=== PATIENT | female | born 1940 | race Caucasian/White ===

== ENCOUNTER → 2016-11-09 | Outpatient (CLI) | payer MEDICARE, OTHER ==
[~2016-11-09] MED LIST: RT-ALBUTEROL SULF 2.5 MG/3 ML PRE-MIX VIAL IH ONE; RT-ALBUTEROL SULF 2.5 MG/3 ML PRE-MIX VIAL ONE
== END ==
LOC: RT 14:15
PROVIDERS: ATTEND Nurse Practitioner Family
DX: J45.909 Unspecified asthma, uncomplicated (principal); J42 Unspecified chronic bronchitis; R06.00 Dyspnea, unspecified
CPT/HCPCS: 94060; 94640; 94726; 94729

== ENCOUNTER 2017-12-06 05:42 | Outpatient (CLI) | payer MEDICARE, OTHER ==
[~2017-12-06] VITALS: Ht 165.1 cm; Wt 84.4 kg
[2017-12-06] MEDS ORDERED: OMEG-141 PO (15:35)
[2017-12-06] MEDS ORDERED: FENO160T12 PO (15:35)
[2017-12-06] MEDS ORDERED: CARV12.53 PO (15:35)
[2017-12-06] MEDS ORDERED: MONT10TA24 PO (15:35)
[2017-12-06] MEDS ORDERED: METF-399 PO (15:35)
[2017-12-06] MEDS ORDERED: ASPI-586 PO (15:35)
[2017-12-06] MEDS ORDERED: LACT1CAP62 PO (15:35)
[2017-12-06] MEDS ORDERED: ASCO-262 PO (15:35)
[2017-12-06] MEDS ORDERED: ALPR0.254 PO (15:35)
[2017-12-06] MEDS ORDERED: ZOLP5TAB7 PO (15:35)
[2017-12-06] MEDS ORDERED: SPIR25TA5 PO (15:35)
[2017-12-06] MEDS ORDERED: MAGN250T13 PO (15:35)
[2017-12-06] MEDS ORDERED: CETI10TA20 PO (15:35)
[2017-12-06] MEDS ORDERED: DOXA2TAB2 PO (15:35)
[2017-12-06] MEDS ORDERED: CALC600T12 PO (15:35)
[2017-12-06] MEDS ORDERED: LEVO50TA6 PO (15:35)
[2017-12-06] MEDS ORDERED: BUDE0.5A IH (15:35)
[2017-12-06] MEDS ORDERED: TRAM50TA2 PO (15:35)
[2017-12-06] MEDS ORDERED: PANT40TA3 PO (15:35)
[2017-12-06] MEDS ORDERED: CYAN50008 PO (15:35)
[2017-12-06] MEDS ORDERED: CHOL200025 PO (15:35)
== END 2017-12-06 15:36 | disposition home or self-care (01) ==
LOC: PREOP 05:42
PROVIDERS: ATTEND Surgery
DX: Z01.818 Encounter for other preprocedural examination (principal)

== ENCOUNTER 2017-12-13 08:32 | Day surgery (SDC) | payer MEDICARE, OTHER ==
[~2017-12-13] VITALS: Ht 165.1 cm; Wt 84.4 kg
[~2017-12-13 08:32] MED LIST changes: +ALPR0.254 PO; +ASCO-262 PO; +ASPI-586 PO; +BUDE0.5A IH; +CALC600T12 PO; +CARV12.53 PO; +CETI10TA20 PO; +CHOL200025 PO; +CYAN50008 PO; +DOXA2TAB2 PO; +FENO160T12 PO; +LACT1CAP62 PO; +LEVO50TA6 PO; +MAGN250T13 PO; +METF-399 PO; +MONT10TA24 PO; +OMEG-141 PO; +PANT40TA3 PO; -RT-ALBUTEROL SULF 2.5 MG/3 ML PRE-MIX VIAL IH ONE; -RT-ALBUTEROL SULF 2.5 MG/3 ML PRE-MIX VIAL ONE; +SPIR25TA5 PO; +TRAM50TA2 PO; +ZOLP5TAB7 PO
[2017-12-13] MEDS ORDERED: NS IV 500 ML 500 ML ONE (08:48)
[2017-12-13] MEDS ORDERED: NS IV 500 ML 500 ML IV PRN (08:48)
[2017-12-13] MEDS ORDERED: fentaNYL INJECTION 100 MCG/2 ML AMP IVP ONE (09:00)
[2017-12-13] MEDS ORDERED: HURRICAINE EXT TUBE (BENZOCAINE) XX PRN (09:00)
[2017-12-13] MEDS ORDERED: MIDAZOLAM 2 MG/2 ML (VERSED) VIAL IVP ONE (09:00)
[2017-12-13 09:08] VITALS: BP 146/69
[2017-12-13] MEDS ORDERED: fentaNYL INJECTION 100 MCG/2 ML AMP ONE ×2 (10:10→10:11)
[2017-12-13] MEDS ORDERED: MIDAZOLAM 2 MG/2 ML (VERSED) VIAL ONE ×5 (10:11)
[2017-12-13] MEDS ORDERED: HURRICAINE EXT TUBE (BENZOCAINE) ONE (10:11)
--- NOTE | 2017-12-13 11:26 | Endo Procedure Record ---
Endo Procedure Report Date of Procedure Last Colonoscopy: Yes Dec 13, 2017 Surgeon (s) MARU SRIVASTAVA MD Post Procedure/Op Diagnosis EGD: Uncomplicated hiatal hernia. Small polyps along the proximal stomach. 1 mm distal gastric erosion Colonoscopy: Sigmoid diverticulosis. Poor bowel prep Procedure Performed EGD with antral biopsy for H. pylori. Gastric polypectomy using hot biopsy forceps Colonoscopy to cecum Description of Procedure Anesthesia Type: Conscious Sedation Specimen(s) collected/removed antral mucosa for H. pylori. Gastric polyp Description of the Procedure Indication for the procedures: This lady came in for an upper endoscopy to evaluate epigastric pain and symptoms of reflux disease, along with screening colonoscopy. Informed consent was obtained after reviewing the procedures in detail. Description of procedures: EGD/antral biopsy/gastric polypectomy: She was placed in left lateral decubitus position and her vital signs were monitored. Conscious sedation was achieved using Versed and fentanyl. The flexible gastroscope was then introduced down the esophagus, past the stomach, into the proximal duodenum. Findings: Esophagus: An uncomplicated hiatal hernia. There was no esophagitis. Stomach: 1. 1 mm erosion in the antrum. Biopsy for H. pylori was obtained. 2. A few, 1 mm polyps along the proximal body of the stomach. One of these was excised using hot biopsy forceps Duodenum: Normal. She tolerated the procedure well and was turned around in preparation for colonoscopy. Impression: Epigastric pain and symptoms of reflux disease. No esophagitis. Incidental gastric erosion. H. pylori status pending. Colonoscopy: Examination of the perianal area revealed external skin tags and a small component of external hemorrhoids. Digital examination was otherwise unremarkable. The colonoscope was then introduced into the rectum and advanced all the way to the cecum. The quality of bowel preparation was rather suboptimal. The scope was then withdrawn slowly and the mucosa examined in a systematic fashion. Finding: Sigmoid diverticulosis. She tolerated the procedures well and was taken back to the nursing area in a stable condition. Impression: Screening colonoscopy. No polyps. Recommend repeating in 5 years in view of family history of polyps Copy Copies To 1: GUI JOE XAVIER M MD Dec 13, 2017 11:25
--- NOTE | 2017-12-13 11:27 | Discharge Inst-Simple/Standard ---
Discharge Inst-Standard Discharge Medications New, Converted or Re-Newed RX: Other Patient Instructions/Follow Up Plan of Care/Instructions/FU: please schedule a CT of abdomen and pelvis with oral contrast regarding a ventral hernia. Follow-up with me in a week after the CT scan is completed. Activity as Tolerated: Yes Discharge Diet: No Restrictions MARU SRIVASTAVA MD Dec 13, 2017 11:27
--- NOTE | 2017-12-13 11:29 | History & Physicial ---
History of Present Illness History of Present Illness Reason for visit/HPI to undergo an upper endoscopy regarding symptoms of GERD and epigastric pain, along with screening colonoscopy. Reports a family history of polyps in one of her siblings. Date of Admission 12/13/17 Date Seen by a Provider: Dec 13, 2017 Time Seen by a Provider: 09:55 I consulted on this patient on 12/13/17 11:27 Attending Physician Maru Srivastava MD Admitting Physician Narayan Murillo MD Consult Allergies and Home Medications Allergies Coded Allergies: TREASURE Inhibitors (Unverified Allergy, Severe, cough, 11/09/16) Penicillins (Unverified Allergy, Intermediate, RASH, 11/09/16) morphine (Unverified Allergy, Intermediate, HIVES, 11/09/16) hydrochlorothiazide (Verified Allergy, Unknown, 12/06/17) losartan (Verified Allergy, Unknown, 12/06/17) promethazine (Unverified Adverse Reaction, Severe, hallucinate, disoriented, 11/09/16) amoxicillin (Unverified Adverse Reaction, Unknown, stomach ache, 11/09/16) clavulanic acid (Unverified Adverse Reaction, Unknown, stomach ache, ) Home Medications Alprazolam 0.25 Mg Tablet, 0.25 MG PO TID PRN for ANXIETY, (Reported) Ascorbate Calcium 500 Mg Tablet, 500 MG PO HS, (Reported) Aspirin 81 Mg Tablet.dr, 81 MG PO HS, (Reported) Budesonide 0.5 Mg/2 Ml Ampul.neb, 0.5 MG IH BID, (Reported) Calcium Carbonate 600 Mg Tablet, 600 MG PO DAILY, (Reported) Carvedilol 12.5 Mg Tablet, 12.5 MG PO BID, (Reported) Cetirizine HCl 10 Mg Tablet, 10 MG PO HS, (Reported) Cholecalciferol (Vitamin D3) 2,000 Unit Tablet, 2,000 UNIT PO DAILY, (Reported) Cyanocobalamin (Vitamin B-12) 5,000 Mcg Tab.rapdis, 5,000 MCG PO DAILY, ( Reported) Doxazosin Mesylate 2 Mg Tablet, 2 MG PO HS, (Reported) Fenofibrate 160 Mg Tablet, 160 MG PO DAILY, (Reported) Lactobacillus Acidophilus 1 Each Capsule, 1 EACH PO DAILY, (Reported) Levothyroxine Sodium 50 Mcg Tablet, 50 MCG PO DAILY, (Reported) Magnesium Oxide 250 Mg Tablet, 250 MG PO HS, (Reported) Metformin HCl 1,000 Mg Tablet, 1,000 MG PO BID, (Reported) Montelukast Sodium 10 Mg Tablet, 10 MG PO HS, (Reported) [place]-3/Dha/Epa/Fish Oil 1 Each Capsule, 1 EACH PO DAILY, (Reported) Pantoprazole Sodium 40 Mg Tablet.dr, 40 MG PO BID, (Reported) Spironolactone 25 Mg Tablet, 25 MG PO BID, (Reported) Tramadol HCl 50 Mg Tablet, 50 MG PO BID PRN for PAIN-MILD TO MODERATE, (Reported ) Zolpidem Tartrate 5 Mg Tablet, 5 MG PO HS, (Reported) Patient Home Medication List Home Medication List Reviewed: Yes Past Jepbfqj-Mibogi-Jftkue Hx Patient Social History Marrital Status: Employed/Student: retired Alcohol Use: Denies Use Recreational Drug Use: No Smoking Status: Never a Smoker Recent Foreign Travel: No Contact w/other who traveled: No Recent Hopitalizations: No Recent Infectious Disease Expo: No Immunizations Up To Date Date of Pneumonia Vaccine: Dec 07, 2015 Date of Influenza Vaccine: Dec 06, 2016 Seasonal Allergies Seasonal Allergies: Yes Surgeries Adenoidectomy, Appendectomy, Gallbladder, Hysterectomy, Tonsillectomy Respiratory Currently Using CPAP: Yes Cardiovascular Hypertension Gastrointestinal Gastroesophageal Reflux Musculoskeletal Degenerate Disk Disease, Arthritis Review of Systems Constitutional: no symptoms reported EENTM: no symptoms reported Respiratory: no symptoms reported Cardiovascular: no symptoms reported Gastrointestinal: see HPI Genitourinary: no symptoms reported Musculoskeletal: no symptoms reported Skin: no symptoms reported Physical Exam Vital Signs Vital Signs - First Documented 12/13/17 09:08 Temp 97.8 Pulse 71 Resp 16 B/P (MAP) 146/69 (94) Pulse Ox 96 O2 Delivery Room Air Capillary Refill : Height, Weight, BMI Height: 5'5.00" Weight: 186lbs. 0.0oz. [id number]; 31.0 BMI Method: General Appearance: No Apparent Distress Neck: Normal Inspection Respiratory: Lungs Clear Cardiovascular: Regular Rate, Rhythm Gastrointestinal: Non Tender, Soft Rectal: Deferred Neurologic/Psychiatric: Alert, Oriented x3 Skin: Warm/Dry Assessment/Plan Assessment and Plan lady with symptoms of reflux and epigastric pain. Ventral hernia in reference to a subcostal scar from open cholecystectomy several years ago. For screening colonoscopy. Admission Diagnosis Admission Status: Other (Outpt Proc) MARU SRIVASTAVA MD Dec 13, 2017 11:29
--- NOTE | 2017-12-13 11:29 | Conscious Sedation/ASA ---
Conscious Sedation Pre-Proced Time 09:58 ASA Score 2 For ASA 3 and 4: Consider anesthesia and medical clearance. Also, for patients with a history of failed moderate sedation consider anesthesia. Airway Lungs Heart ASA score ASA 1: a normal healthy patient ASA 2: a patient with a mild systemic disease (mid diabetes, controlled hypertension, obesity ASA 3: a patient with a severe systemic disease that limits activity (angina , COPD, prior Myocardial infarction) ASA 4: a patient with an incapacitating disease that is a constant threat to life (CHF, renal failure) ASA 5: a moribund patient not expected to survive 24 hrs. (ruptured aneurysm) ASA 6: a declared brain patient whose organs are being harvested. For emergent operations, add the letter E after the classification Mallampati Classification Grade 2 Sedation Plan Discussed options with patient/fam The patient is an appropriate candidate to undergo the planned procedure, sedation, and anesthesia. The patient immediately re-assessed prior to indication. MARU SRIVASTAVA MD Dec 13, 2017 11:29
[2017-12-13 11:30] VITALS: BP 150/69
[2017-12-13 12:30] VITALS: BP 129/70
[2017-12-13 12:45] VITALS: BP 129/70
== END 2017-12-13 12:45 | disposition home or self-care (01) ==
LOC: ENDO 08:32
PROVIDERS: ATTEND Surgery
DX: Z12.11 Encounter for screening for malignant neoplasm of colon (principal); K57.30 Diverticulosis of large intestine without perforation or abscess without bleeding; K64.4 Residual hemorrhoidal skin tags; K21.9 Gastro-esophageal reflux disease without esophagitis; K44.9 Diaphragmatic hernia without obstruction or gangrene; K31.7 Polyp of stomach and duodenum; K25.9 Gastric ulcer, unspecified as acute or chronic, without hemorrhage or perforation; I10 Essential (primary) hypertension; Z83.71 Family history of colonic polyps; Z79.82 Long term (current) use of aspirin; Z79.84 Long term (current) use of oral hypoglycemic drugs; Z79.899 Other long term (current) drug therapy
CPT/HCPCS: 43239; G0121; 88305

== ENCOUNTER → 2020-06-11 | Outpatient (CLI) | payer MEDICARE, OTHER ==
[~2020-06-11] MED LIST changes: +ALPR.25T PO; -ALPR0.254 PO; -CALC600T12 PO; -CETI10TA20 PO; +CETI10TA49 PO; +CLC600T PO; -MONT10TA24 PO; +MONT10TA32 PO; -PANT40TA3 PO; +PANT40TA52 PO; +RT-ALBUTEROL SULF 2.5 MG/3 ML PRE-MIX VIAL INH ONE; -TRAM50TA2 PO; +TRM50T PO
== END ==
LOC: RT 12:32
PROVIDERS: ATTEND Nurse Practitioner Family
DX: J45.909 Unspecified asthma, uncomplicated (principal)
CPT/HCPCS: 94060; 94726; 94729